=== PATIENT | female | born 1950 | race Caucasian/White ===

== ENCOUNTER → 2018-05-07 | Outpatient (CLI) | payer OTHER | LOC: BHCLAF 11:30 | PROVIDERS: ATTEND Internal Medicine Interventional Cardiology | DX: R06.02 Shortness of breath (principal); I10 Essential (primary) hypertension | CPT/HCPCS: 93306-PO ==

== ENCOUNTER 2018-11-18 16:15 | Observation (INO) | payer OTHER ==
[2018-11-18] MEDS ORDERED: NS 500 ML IV ONE ×3 (16:57→18:08)
--- NOTE | 2018-11-18 17:23 | EDPHY ---
HPI/HX/ROS/PE/MDM Narrative: CHIEF COMPLAINT: Inability to urinate HPI: The patient is a 68-year-old female with a complex past medical history including polysubstance abuse, chronic pain, mental health disease. She presented for a routine primary care appointment earlier today. When she was asked to provide a urine specimen, the patient was unable to urinate normally. She denies dysuria. She states it has been approximately 3 days she was able to produce a normal amount of urine. She complains of some abdominal fullness but no specific abdominal pain. Of note, the patient tells me that within the last year she was admitted to the hospital for kidney failure, but is unable to provide me with any details surrounding this. The patient states that she drink quite a bit of fluid this afternoon to try and induce herself to urinate, but this had no effect. REVIEW OF SYSTEMS: Aside from elements discussed in the HPI, a comprehensive 10-point review of systems was reviewed and is negative. PMH: Please see full chart, includes polysubstance abuse, chronic pain, bipolar , history of previous renal failure SOCIAL HISTORY: States that she somewhat recently quit drinking alcohol. History of polysubstance abuse. PHYSICAL EXAM: General:Patient is alert, in no acute distress. ENT:Eyes are normal to inspection. Mucous membranes are quite dry. Neck: Normal inspection. Full range of motion. Respiratory:No respiratory distress. Breath sounds normal bilaterally. Cardiovascular: Regular rate and rhythm. Strong peripheral pulses. Normal cap refill. Abdomen:The abdomen is nontender to palpation. There are no peritoneal signs. There are normal bowel sounds. Back: Normal to inspection. No tenderness to palpation. Skin: Normal color. No rash. Warm and dry. Extremities: Normal appearance. Full range of motion. Neuro: Oriented x3. Normal motor function. Normal sensory function. Psych: Odd affect. Somewhat tangential. ED Course: I performed a bedside ultrasound of the patient's suprapubic region. This revealed no appreciable urine in bladder or bladder distention. I reviewed [facility] but can find no record of the patient's hospitalization for ARF, which was at [facility]. She tells me that she is unsure of what caused the renal issues but that she had some sort of respiratory illness at the time. On re-eval at 1800, patient is asymptomatic but can still not urinate. I have ordered an additional 500cc bolus of NS. Her BP is slightly low, however she is sitting up in bed and reporting that she is hungry, so I so not think this is phone representative of critical illness. I have recommended EMS transfer again, but she insists she would like to go POV. MDM: This patient presents with anuria. Her bloodwork reveals an elevated creatinine indicating renal failure. The etiology is unclear but given patient' s apparent dehydration on physical exam and medical history, this may represent simple dehydration. She is in agreement with plan for inpatient admission and transfer to [facility]. I spoke with the hospitalist service at 1800. Dr. Montenegro accepts admission. Patient prefers to go POV rather than EMS. - Data Points Laboratory Results: 11/18/18 17:18 POC Sodium 138 mEq/L mEq/L (135-145) POC Potassium 4.6 mEq/L mEq/L (3.3-5.0) POC Chloride 96.0 mEq/L L mEq/L (97-110) POC Total CO2 25 mEq/L mEq/L (22-31) POC BUN 32 mg/dL H mg/dL (7-23) POC Creatinine 3.4 mg/dL H mg/dL (0.6-1.0) POC Glucose 97 mg/dL mg/dL (70-100) POC Calcium 9.9 mg/dL mg/dL (8.5-10.4) POC Total Bilirubin 1.1 mg/dL mg/dL (0.1-1.4) POC AST 49 IU/L H IU/L (14-46) POC ALT 32 IU/L IU/L (9-52) POC Alk Phosphatase 95 IU/L IU/L (38-126) POC Total Protein 7.4 g/dL g/dL (6.3-8.2) POC Albumin 3.8 g/dL g/dL (3.5-5.0) Medications Given: Sodium Chloride (Ns) 500 mls @ 0 mls/hr IV ONCE ONE PRN Reason: Wide Open Stop: 11/18/18 18:09 Last Admin: 11/18/18 18:09 Dose: 500 mls Discontinued Medications Sodium Chloride (Ns) 500 mls @ 0 mls/hr IV ONCE ONE PRN Reason: Wide Open Stop: 11/18/18 16:58 Last Admin: 11/18/18 17:23 Dose: 500 mls Point of Care Test Results: CBC CBC Collection Date 11/18/18 CBC Collection Time 17:10 WBC 14.42 RBC 3.72 HGB 12.2 HCT 35.8 PLT 262 Neut # 11.21 Neut 77.8 LYMPH # 1.6 LYMPH 11.1 MCV 96.2 Chemistry 11/18/18 17:18 POC Sodium 138 mEq/L mEq/L (135-145) POC Potassium 4.6 mEq/L mEq/L (3.3-5.0) POC Chloride 96.0 mEq/L L mEq/L (97-110) POC Total CO2 25 mEq/L mEq/L (22-31) POC BUN 32 mg/dL H mg/dL (7-23) POC Creatinine 3.4 mg/dL H mg/dL (0.6-1.0) POC Glucose 97 mg/dL mg/dL (70-100) POC Calcium 9.9 mg/dL mg/dL (8.5-10.4) POC Total Bilirubin 1.1 mg/dL mg/dL (0.1-1.4) POC AST 49 IU/L H IU/L (14-46) POC ALT 32 IU/L IU/L (9-52) POC Alk Phosphatase 95 IU/L IU/L (38-126) POC Total Protein 7.4 g/dL g/dL (6.3-8.2) POC Albumin 3.8 g/dL g/dL (3.5-5.0) General Time Seen by Provider: 11/18/18 16:24 Initial Vital Signs: Initial Vital Signs Temperature (C) 36.9 C 11/18/18 16:23 Heart Rate 99 11/18/18 16:23 Respiratory Rate 16 11/18/18 16:23 Blood Pressure 89/59 L 11/18/18 16:23 O2 Sat (%) 91 L 11/18/18 16:23 O2 Delivery Mode Room Air Allergies/Adverse Reactions: diltiazem Allergy (Verified 11/18/18 16:29) Pt reports Anaphylaxis erythromycin base [Erythromycin Base] Allergy (Verified 11/18/18 16:29) Pt reports Rash lisinopril [Lisinopril] Allergy (Verified 11/18/18 16:29) Pt reports Rash morphine [Morphine] Allergy (Verified 11/18/18 16:29) Pt reports Itching prochlorperazine edisylate [From Compazine] Allergy (Verified 11/18/18 16:29) Pt reports EXTRAPYRAMIDAL promethazine HCl [From Phenergan] Allergy (Verified 11/18/18 16:29) Pt reports "my eyes roll back in my head" ENVIRONMENTAL Allergy (Uncoded 11/18/18 16:29) Pt reports Congestion Home Medications: Medication Instructions Recorded Nitroglycerin [Nitrostat 0.4 mg 0.4 mg SL PRN PRN 01/25/13 (*)] Pantoprazole Sodium [Protonix 40mg 40 mg PO BID #1 tab 06/28/14 (*)] Gabapentin [Neurontin 300 MG (*)] 300 mg PO TID 09/14/15 Irbesartan [Avapro 300 mg] 300 mg PO DAILY 09/14/15 LORazepam [Ativan] 0.5 - 1 mg PO DAILY PRN 09/14/15 Multivitamins [Multivitamin (*)] 1 each PO DAILY 09/14/15 Venlafaxine Xr [Effexor Xr 75MG 75 mg PO TID 09/14/15 (*)] Magnesium Hydroxide [Milk of 30 ml PO DAILY PRN #0 udcup 09/23/15 Magnesia (*)] oxyCODONE IR [Oxycodone Ir (*)] 5 - 15 mg PO Q3 PRN #0 tab 09/23/15 Morphine Sulfate ER 11/18/18 Departure - Departure Disposition: [facility] Acute Clinical Impression: Acute renal failure Condition: Fair
[2018-11-18] MEDS ORDERED: ONDANSETRON DISINTEGRATING 4 MG TAB PO PRN (19:33)
[2018-11-18] MEDS ORDERED: oxyCODONE IR 5 MG TAB PO PRN (19:33)
[2018-11-18] MEDS ORDERED: HYDROmorphONE/DILAUDID 1 MG/ML INJ IVP PRN (19:33)
[2018-11-18] MEDS ORDERED: ACETAMINOPHEN 325 MG TAB PO PRN (19:33)
[2018-11-18] MEDS ORDERED: ONDANSETRON 4 MG/2 ML VIAL IVP PRN (19:33)
--- NOTE | 2018-11-18 21:29 | PDGENHP ---
History and Physical - Chief Complaint unable to urinate - History of Present Illness 68yo F with history of chronic pain on opioids, CAD s/p PCI, prior alcohol abuse , recent hospitalization (at outside hospital) for acute renal failure who presented to [facility] ED with decreasing urine output. She first noticed minimal urine 4 days ago and hasn't made hardly any urine in 2-3 days. She has been eating and drinking normally. No nausea, vomiting, or diarrhea. She has noticed some mild swelling in her legs. She did have a bowel movement yesterday. No new leg weakness or numbness. In the ED, she was noted to have a serum creatinine of 3.4. She actually had labs done yesterday and her creatinine was 1.7 at that time. It was 0.8 on 10/19/2018. She was then directed to [facility] for admission for further evaluation. She denies any significant nsaid use. Her PCP had reduced her irbesartan dose from 150 to 75mg yesterday because of intermittent symptomatic low BPs. Otherwise no medication changes. She believes the cause of her renal failure during her recent hospitalization was dehydration. History Information - Allergies/Home Medication List Allergies/Adverse Reactions: diltiazem Allergy (Verified 11/18/18 16:29) Pt reports Anaphylaxis erythromycin base [Erythromycin Base] Allergy (Verified 11/18/18 16:29) Pt reports Rash lisinopril [Lisinopril] Allergy (Verified 11/18/18 16:29) Pt reports Rash morphine [Morphine] Allergy (Verified 11/18/18 16:29) Pt reports Itching prochlorperazine edisylate [From Compazine] Allergy (Verified 11/18/18 16:29) Pt reports EXTRAPYRAMIDAL promethazine HCl [From Phenergan] Allergy (Verified 11/18/18 16:29) Pt reports "my eyes roll back in my head" ENVIRONMENTAL Allergy (Uncoded 11/18/18 16:29) Pt reports Congestion Home Medications: Nitroglycerin [Nitrostat 0.4 mg (*)] 0.4 mg SL PRN PRN 01/25/13 [Last Taken 07/06] Gabapentin [Neurontin 300 MG (*)] 300 mg PO 5XD 09/14/15 [Last Taken 11/18/18] Multivitamins [Multivitamin (*)] 1 each PO DAILY 09/14/15 [Last Taken 09/12/15] Venlafaxine Xr [Effexor Xr 75MG (*)] 75 mg PO DAILY 09/14/15 [Last Taken ] Irbesartan [Avapro 150 mg (*)] 75 mg PO DAILY 11/18/18 [Last Taken 11/18/18] LORazepam [Ativan (*)] 1 mg PO HS 11/18/18 [Last Taken 11/17/18] Pantoprazole Sodium [Protonix 40mg (*)] 40 mg PO DAILY 11/18/18 [Last Taken Unknown] Venlafaxine HCl [Venlafaxine HCl ER] 150 mg PO DAILY 11/18/18 [Last Taken ] morphINE SR [MS Contin/Oramorph SR 30 mg (*)] 30 mg PO BID 11/18/18 [Last Taken 11/18/18 08:00] oxyCODONE IR [Oxycodone Ir (*)] 5 mg PO Q2 11/18/18 [Last Taken 11/18/18] I have personally reviewed and updated: family history, medical history, social history, surgical history - Past Medical History Additional medical history: chronic pain with opioid dependence, CAD s/p PCI, GERD, pulmonary fibrosis, atrial fibrillation, ? bipolar disorder, HTN, HLD - Surgical History Additional surgical history: appendectomy, L knee arthroscopy, laminectomy, lumbar spinal fusion - Family History Positive for: non-pertinent - Social History Smoking Status: Never smoked Alcohol Use: Other (previous heavy drinker, sober for roughly 6 weeks) Drug Use: None Additional social history: Lives with , who is at bedside. Previously a physical therapist but now on disability. Review of Systems Review of Systems: ROS: 10pt was reviewed & negative except for what was stated in HPI & below Physical Exam Physical Exam: Temp Pulse Resp BP Pulse Ox 36.6 C 103 H 17 100/62 90 L 11/18/18 20:46 11/18/18 20:46 11/18/18 20:46 11/18/18 20:46 11/18/18 20:46 Constitutional: no apparent distress Eyes: PERRL, anicteric sclera, EOMI Ears, Nose, Mouth, Throat: moist mucous membranes, hearing normal, ears appear normal, no oral mucosal ulcers Cardiovascular: regular rate and rhythym, no murmur, rub, or gallop, edema (1+ BLE to mid shine) Respiratory: no respiratory distress, no rales or rhonchi, clear to auscultation Gastrointestinal: normoactive bowel sounds, soft, non-tender abdomen, no palpable masses Genitourinary: no bladder fullness, no bladder tenderness Skin: warm, normal color, no rashes or abrasions, no fluctuance, no induration, No mottled Musculoskeletal: full muscle strength, no muscle tenderness, normal joint ROM, no joint effusions Neurologic: AAOx3 Psychiatric: interacting appropriately Lab Data & Imaging Review POC Sodium 138 mEq/L (135-145) 11/18/18 17:18 POC Potassium 4.6 mEq/L (3.3-5.0) 11/18/18 17:18 POC Chloride 96.0 mEq/L (97-110) L 11/18/18 17:18 POC Total CO2 25 mEq/L (22-31) 11/18/18 17:18 POC BUN 32 mg/dL (7-23) H 11/18/18 17:18 POC Creatinine 3.4 mg/dL (0.6-1.0) H 11/18/18 17:18 POC Glucose 97 mg/dL (70-100) 11/18/18 17:18 POC Calcium 9.9 mg/dL (8.5-10.4) 11/18/18 17:18 POC Total Bilirubin 1.1 mg/dL (0.1-1.4) 11/18/18 17:18 POC AST 49 IU/L (14-46) H 11/18/18 17:18 POC ALT 32 IU/L (9-52) 11/18/18 17:18 POC Alk Phosphatase 95 IU/L (38-126) 11/18/18 17:18 POC Total Protein 7.4 g/dL (6.3-8.2) 11/18/18 17:18 POC Albumin 3.8 g/dL (3.5-5.0) 11/18/18 17:18 TSH 2.740 uIU/mL (0.465-4.680) 11/18/18 20:14 Urine Color JOSE 11/18/18 19:39 Urine Appearance MODERATELY TURBID 11/18/18 19:39 Urine pH 5.0 (5.0-7.5) 11/18/18 19:39 Ur Specific [place] 1.013 (1.002-1.030) 11/18/18 19:39 Urine Protein NEGATIVE (NEGATIVE) 11/18/18 19:39 Urine Ketones NEGATIVE (NEGATIVE) 11/18/18 19:39 Urine Blood NEGATIVE (NEGATIVE) 11/18/18 19:39 Urine Nitrate NEGATIVE (NEGATIVE) 11/18/18 19:39 Urine Bilirubin NEGATIVE (NEGATIVE) 11/18/18 19:39 Urine Urobilinogen NEGATIVE EU (0.2-1.0) 11/18/18 19:39 Ur Leukocyte Esterase NEGATIVE (NEGATIVE) 11/18/18 19:39 Urine Glucose NEGATIVE (NEGATIVE) 11/18/18 19:39 Assessment & Plan Assessment: 68yo F with history of chronic pain on opioids, CAD s/p PCI, prior alcohol abuse , recent hospitalization for acute renal failure who presented to [facility] ED with decreasing urine output found to have acute kidney injury. Plan: 1. Acute kidney injury: Cr 1.7 yesterday to 3.4 today (baseline 0.8) but no indication for urgent dialysis. Unclear etiology. No nsaids. Possibly she gets dehydrated in setting of ARB. - Check urine studies, renal ultrasound - Holding irbesartan. Would recommend discontinuing PRANEETH/ARB altogether and using different anti-hypertensive agent, if needed - IV fluids - If not improving, would get renal consult 2. Chronic pain with opioid dependence - Continue home MS contin - Holding gabapentin until renal fxn improves 3. Depression - Continue effexor 4. CAD s/p remote PCI - Not on aspirin or statin (simvastatin previously listed) 5. Hypertension - Monitor off irbesartan 6. Elevated AST: Previous notes indicate fatty liver. 7. H/o etoh abuse: Sober for 6 weeks. VTE ppx: SQH Code: full Dispo: admit under observation
[2018-11-18] MEDS ORDERED: GABAPENTIN 300 MG CAP PO SCH (22:00)
[2018-11-18] MEDS: morphINE SR 30 MG TAB PO SCH (22:42)
[2018-11-18] MEDS: LORazepam 1 MG TAB PO SCH (22:42)
[2018-11-18] MEDS: HEPARIN 5,000 UNIT/0.5 ML INJ SC SCH (22:42)
[2018-11-18] MEDS: oxyCODONE IR 5 MG TAB PO SCH (22:42)
[2018-11-18] MEDS: NS 1,000 ML IV SCH (22:47)
[2018-11-19] MEDS: oxyCODONE IR 5 MG TAB PO SCH ×12 (01:01→22:01)
[2018-11-19 04:34] LABS: PLATELET COUNT 197 10^3/uL (150-400)
[2018-11-19] MEDS: HEPARIN 5,000 UNIT/0.5 ML INJ SC SCH ×3 (06:10→21:33)
[2018-11-19] MEDS: NS 1,000 ML IV SCH ×2 (06:48→14:21)
[2018-11-19] MEDS: VENLAFAXINE XR 75 MG CAP PO SCH (08:56)
[2018-11-19] MEDS: morphINE SR 30 MG TAB PO SCH ×2 (08:56→21:33)
[2018-11-19] MEDS: VENLAFAXINE XR 150 MG CAP PO SCH (08:56)
[2018-11-19] MEDS: MULTIVITAMINS 1 EACH TAB PO SCH (08:56)
[2018-11-19] MEDS: PANTOPRAZOLE SODIUM 40 MG TAB PO SCH (08:56)
--- NOTE | 2018-11-19 09:10 | ASMTCMCOM ---
CM Note CM Note Notes: CM met with Carolina regarding discharge planning. Pt is a 68yr old admitted with decrease urinary output & edema in lower legs. Pt with a hx of chronic pain on opioids, pulmonary fibrosis, Atrial fib, CAD s/p PCI, ? Bipolar disorder, Alcohol abuse, a prior admission at another hospital for acute renal failure. Pt lives with her supportive . CM will monitor needs. PLAN: Likely discharge home with when medically cleared. Date Signed: 11/19/2018 09:09 AM Electronically Signed By:Kinga Champion.RN,SITE RELIABILITY ENGINEER
[2018-11-19] MEDS ORDERED: MAG HYDROX/AL HYDROX/SIMETH 30 ML UDCUP PO ONE (10:02)
[2018-11-19] MEDS ORDERED: LIDOCAINE 2% VISCOUS 15 ML UDCUP PO ONE (10:02)
[2018-11-19] MEDS ORDERED: HYOSCYAMINE SULFATE 0.125 MG TAB PO ONE (10:02)
--- NOTE | 2018-11-19 13:08 | HOSPPROG ---
Hospitalist Progress Note Assessment/Plan: 68 yo F with history of chronic pain on opioids, CAD s/p PCI, prior alcohol abuse, recent hospitalization for acute renal failure who presented to [facility] ED with decreasing urine output found to have acute kidney injury Plan: SHANIQUE: FeNa 0.05% suggesting pre-renal. Cr down to 2.4 from 3.4 with IVF's. UA neg. Renal u/s ok. -cont NS, will decrease rate to 100/hr Chronic pain with opioid dependence - Continue home MS contin - Will resume gabapentin at lower dose 300 mg bid until CrCl improves Depression - Continue effexor CAD s/p remote PCI - Not on aspirin or statin (simvastatin previously listed) Hypertension - holding ARB Elevated AST: Previous notes indicate fatty liver. H/o etoh abuse: Sober for 6 weeks. Abdominal distention: check u/s to eval for ascites and liver parenchyma VTE ppx: SQH Code: full Dispo: change to inpt for ongoing management of SHANIQUE Subjective: PT feels ok. Notes increased abdominal distention, but not painful. No fevers. No vomiting. Taking po ok, but admits to not drinking as much fluids lately. Objective: Vital Signs Temp Pulse Resp BP Pulse Ox 36.8 C 84 16 104/68 91 L 11/19/18 11:22 11/19/18 11:22 11/19/18 11:22 11/19/18 11:22 11/19/18 11:22 Laboratory Results 11/19/18 04:06 11/19/18 04:06 11/18/18 11/19/18 11/20/18 05:59 05:59 05:59 Intake Total 1400 Output Total 1450 800 Balance -50 -800 - Physical Exam Constitutional: no apparent distress Eyes: PERRL Ears, Nose, Mouth, Throat: moist mucous membranes Cardiovascular: regular rate and rhythym Respiratory: no respiratory distress Gastrointestinal: normoactive bowel sounds, soft, non-tender abdomen, distension Skin: warm Musculoskeletal: full muscle strength Neurologic: AAOx3 Psychiatric: interacting appropriately ICD10 Worksheet Patient Problems: Problems Problem Status Onset Acute renal failure Acute Alcohol dependence Acute Bipolar affective disorder, manic, severe, with psychotic behavior Acute Cocaine dependence Acute Delirium Acute Opioid dependence Acute
[2018-11-19] MEDS ORDERED: BENZOCAINE 20%/MENTHOL (ORAJEL) GEL 11.9GM TUBE TP PRN (18:45)
[2018-11-19] MEDS: GABAPENTIN 300 MG CAP PO SCH (21:33)
[2018-11-19] MEDS: LORazepam 1 MG TAB PO SCH (21:33)
[2018-11-20] MEDS: oxyCODONE IR 5 MG TAB PO SCH ×5 (00:07→08:49)
[2018-11-20] MEDS: morphINE SR 30 MG TAB PO SCH (08:20)
[2018-11-20] MEDS: VENLAFAXINE XR 75 MG CAP PO SCH (08:20)
[2018-11-20] MEDS: GABAPENTIN 300 MG CAP PO SCH (08:20)
[2018-11-20] MEDS: PANTOPRAZOLE SODIUM 40 MG TAB PO SCH (08:21)
[2018-11-20] MEDS: VENLAFAXINE XR 150 MG CAP PO SCH (08:21)
[2018-11-20] MEDS: MULTIVITAMINS 1 EACH TAB PO SCH (08:21)
[2018-11-20] MEDS: HEPARIN 5,000 UNIT/0.5 ML INJ SC SCH (08:22)
[2018-11-20 08:46] VITALS: BP 136/102
--- NOTE | 2018-11-20 09:01 | ASMTCMCOM ---
CM Note CM Note Notes: Pt discussed with RN and has no needs. PLAN: will discharge home with . Date Signed: 11/20/2018 09:00 AM Electronically Signed By:Kinga Champion.RN,SECRETARY TO THE VICE PRESIDENT
--- NOTE | 2018-11-20 09:02 | ASMTLACE ---
[facility] Length of stay for Answers: 2 days current admission Comorbidities - select Answers: Coronary Artery Disease all that apply Opioid dependence / Chronic pain Other Notes: HTN; HLD # of Emergency department Answers: 1-2 visits in the last 6 months Social determinants Answers: History of substance abuse (ETOH, street drugs, prescription drugs, etc.) Mental health diagnosis (anxiety, depression, pers onality disorders, etc.) Score: 16 Date Signed: 11/20/2018 09:01 AM Electronically Signed By:Kinga Champion.RN,MEAL COOKER
--- NOTE | 2018-11-20 13:35 | GDS ---
[f rep st] DISCHARGE SUMMARY DISCHARGE DIAGNOSES: 1. Acute kidney injury, resolved. 2. Volume depletion, resolved. 3. Chronic pain with chronic opioid dependence. 4. Depression. 5. Hypertension. 6. History of alcohol abuse. 7. History of coronary artery disease, status post remote PCI, stable. 8. Mild hepatomegaly with diffuse fatty infiltration. CONSULTATIONS: None. HISTORY: For details, please see history and physical dated November 18, 2018. In brief. Ms. Thompson is a 68-year-old female with a history of coronary artery disease, alcohol abuse, depression and chronic pain, on chronic continuous opioids, who presented to the emergency department reporting difficulty urinating. Evaluation in the emergency department included a bladder scan, which did not reveal urin julia retention. Labs revealed a creatinine of 3.4. She was admitted to the hospital for further gary gement. HOSPITAL COURSE: Patient admitted to the Medical/Surgical unit. Fractional excretion of sodium was calculated to be 0.05%, suggestive of a prerenal etiology. She received IV fluids. Her creatinine n ormalized from 3.4 down to 0.8 on the day of discharge, which is back to her baseline. She had no el ectrolyte disturbances. Initial workup included a urinalysis which was negative, a renal ultrasound which was also negative. She did have some abdominal distention; however, ultrasound was negative fo r ascites and showed just fatty infiltration of a mildly enlarged liver. She was also noted to have normocytic anemia with a hemoglobin around 11. I will defer this workup to the outpatient setting. She has had no evidence of bleeding. On the day of discharge, she is hemodynamically stable with a blood pressure of 121/88, heart rate 85 , respiratory rate 16. She is 92% on room air. DISPOSITION: Patient is discharged home in stable condition. FOLLOWUP: Dr. Miriam Montanez, primary care. DISCHARGE MEDICATIONS: Please see [facility] for completed outpatient medication list. There are no n ew medications on discharge. Note her irbesartan has been discontinued in the setting of acute renal failure, and we will continue to hold this despite normalization of her creatinine. Her blood press ures have been relatively normal, although she does need close followup with Dr. Montanez to recheck he r blood pressure and determine if resuming antihypertensives is indicated. /[id number]/MODL
== END 2018-11-20 11:42 | disposition home or self-care (01) ==
LOC: CED 16:15 → F1N 19:02
PROVIDERS: ADMIT Internal Medicine; ATTEND Internal Medicine
PROC: 4A0D7LZ Measurement of Urinary Volume, Via Natural or Artificial Opening (ICD-10-PCS; principal; 2018-11-18)
DX: N17.9 Acute kidney failure, unspecified (principal); E86.9 Volume depletion, unspecified; F32.9 Major depressive disorder, single episode, unspecified; I10 Essential (primary) hypertension; G89.29 Other chronic pain; F11.20 Opioid dependence, uncomplicated; F10.11 Alcohol abuse, in remission; Z86.79 Personal history of other diseases of the circulatory system
CPT/HCPCS: 51798; 76700; 76770; 96360; 99285; G0378; J1644; 80053-ER; 81005; 85025-QW-ER; G0483

== ENCOUNTER 2018-12-16 19:28 | Inpatient (IN) | payer OTHER | END 2018-12-19 19:05 | disposition home or self-care (01) | LOC: F2W 12-17 → F1N 12-17 19:19 ==